=== PATIENT | male | born 1995 | race African-American/Black ===

== ENCOUNTER 2017-04-25 21:11 | Emergency (ER) | payer MEDICAID ==
[2017-04-25 21:23] VITALS: BP 143/75
--- NOTE | 2017-04-25 21:39 | ER Document Report ---
HPI - HPI Patient complains to provider of: URI Pain Level: 3 Context: Patient is a 26-year-old male who presents emergency department complaining of fever, body aches that started on Monday. He admits to nonproductive cough, body aches, headache. Admits to sick contacts at home. Denies any nausea, vomiting, abdominal pain, diarrhea, constipation. Denies any decreased urine output. Did take cough medicine prior to arrival. Non-smoker - CONSTITUTIONAL Constitutional: REPORTS: Fever, Chills - EENT EENT: DENIES: Sore Throat, Ear Pain, Eye problems - NEURO Neurology: REPORTS: Headache, Weakness. DENIES: Vision blurred, Dizzinesss / Vertigo - CARDIOVASCULAR Cardiovascular: REPORTS: Chest pain - RESPIRATORY Respiratory: REPORTS: Coughing. DENIES: Trouble Breathing - GASTROINTESTINAL Gastrointestinal: DENIES: Abdominal Pain, Black / Bloody Stools - URINARY Urinary: DENIES: Dysuria, Urgency, Frequency - MUSCULOSKELETAL Musculoskeletal: REPORTS: Extremity pain - Body aches Past Medical History - Social History Smoking Status: Unknown if Ever Smoked Family History: Hypertension, Other - Father-CHF Patient has suicidal ideation: No Patient has homicidal ideation: No Pulmonary Medical History: Reports: Hx Asthma Renal/ Medical History: Denies: Hx Peritoneal Dialysis Psychiatric Medical History: Reports: Hx Anxiety, Hx Bipolar Disorder Vertical Provider Document - CONSTITUTIONAL Agree With Documented VS: Yes Notes: PHYSICAL EXAM GENERAL: Alert, interacts well. HEAD: Normocephalic, atraumatic. EYES: Pupils equal, round, and reactive to light. Extraocular movements intact. ENT: Oral mucosa moist, tongue midline. NECK: Full range of motion. Supple. Trachea midline. LUNGS: Clear to auscultation bilaterally, no wheezes, rales, or rhonchi. No respiratory distress. HEART: Regular rate and rhythm. No murmurs, gallops, or rubs. ABDOMEN: Soft, nondistended, nontender. No guarding, rebound, or rigidity.. Bowel sounds present in all 4 quadrants. EXTREMITIES: Moves all 4 extremities spontaneously. No edema, radial and dorsalis pedis pulses 2/4 bilaterally. No cyanosis. NEUROLOGICAL: Alert and oriented x4. Normal speech. PSYCH: Normal affect, normal mood. SKIN: Warm, dry, normal turgor. No rashes or lesions noted. - INFECTION CONTROL TRAVEL OUTSIDE OF THE [place] IN LAST 30 DAYS: No - RESPIRATORY O2 Sat by Pulse Oximetry: 96 Course - Re-evaluation Re-evalutation: Presentation is most consistent with a viral upper respiratory infection. Initial tachycardia resolved after aggressive p.o. hydration and Motrin. Patient is overall well appearance, vitals within normal limits, well-hydrated. Patient denies any headache, neck pain, and has no evidence of meningismus on examination. Lungs are clear bilaterally. No evidence of respiratory distress. Based on clinical exam and history, I do not suspect an acute pneumonia, meningitis, strep pharyngitis, or an acute encephalitis. No laboratory or imaging testing is indicated at this time. Will discharge patient with return precautions and followup recommendations. They are in agreement this plan have verbalized understanding return precautions. - Vital Signs Vital signs: Temp Pulse Resp BP Pulse Ox 99.2 F 120 H 20 143/75 H 96 04/25/17 21:21 04/25/17 21:21 04/25/17 21:21 04/25/17 21:21 04/25/17 21:21 Discharge - Discharge Clinical Impression: URI (upper respiratory infection) Qualifiers: URI type: unspecified viral URI Qualified Code(s): J06.9 - Acute upper respiratory infection, unspecified Condition: Good Disposition: HOME, SELF-CARE Additional Instructions: Your symptoms are most likely due to a viral infection it should resolve over the next 7-14 days. You should take [id number] guanfacine per bottle instructions to help thin the mucus. For nasal congestion: I would recommend that you get [id number] oxymetazoline also known is afrin. Use only per bottle instructions and be sure to never use this for more than 3 days if you can develop severe rebound congestion. You may also use tylenol or ibuprofen as needed for aches and thorat discomfort. Please be sure to drink plenty of fluids and get rest. Return to the emergency department he began having difficulty breathing, chest pain, persistent vomiting, or any other symptoms that are concerning to you. Forms: Elevated Blood Pressure
[2017-04-25] MEDS ORDERED: IBUPROFEN 800 MG TABLET PO ONE (21:48)
== END 2017-04-25 23:15 | disposition home or self-care (01) ==
LOC: ER 21:11
DX: J06.9 Acute upper respiratory infection, unspecified (principal); R50.9 Fever, unspecified; M79.1 Myalgia; R51 Headache; R53.1 Weakness
CPT/HCPCS: 99283; J3490

== ENCOUNTER 2018-12-07 08:17 | Emergency (ER) | payer SELFPAY ==
--- NOTE | 2018-12-07 08:47 | ER Document Report ---
ED General - General Chief Complaint: Abdominal Pain Stated Complaint: STOAMCH PAIN AND LOWER BACK PAIN Time Seen by Provider: 12/07/18 08:47 TRAVEL OUTSIDE OF THE [place] IN LAST 30 DAYS: No - HPI Patient complains to provider of: abd pain Notes: 23 y/o presenting to ED for evaluation of epigastric burning sensation ongoing throughout the week no fever, chills, vomiting, diarrhea no blood in stool he states the pain is usually worse at night and he has had a sour taste in his mouth when he wakes up he has not tried any medications for this denies abdominal distention or h/o abdominal surgeries - Related Data Allergies/Adverse Reactions: No Known Allergies Allergy (Verified 12/07/18 08:24) Past Medical History - Social History Smoking Status: Unknown if Ever Smoked Chew tobacco use (# tins/day): No Frequency of alcohol use: None Drug Abuse: None Family History: Hypertension, Other - Father-CHF Patient has suicidal ideation: No Patient has homicidal ideation: No Pulmonary Medical History: Reports: Hx Asthma Renal/ Medical History: Denies: Hx Peritoneal Dialysis Psychiatric Medical History: Reports: Hx Anxiety, Hx Bipolar Disorder Review of Systems - Review of Systems Constitutional: No symptoms reported EENT: No symptoms reported Cardiovascular: No symptoms reported Respiratory: No symptoms reported Gastrointestinal: Abdominal pain. denies: Diarrhea, Vomiting, Black stools, Rectal bleeding Genitourinary: No symptoms reported Male Genitourinary: No symptoms reported Musculoskeletal: No symptoms reported Skin: No symptoms reported Hematologic/Lymphatic: No symptoms reported Neurological/Psychological: No symptoms reported Physical Exam - Vital signs Vitals: Temp Pulse Resp BP Pulse Ox 98.8 F 91 16 156/87 H 98 12/07/18 08:22 12/07/18 08:22 12/07/18 08:22 12/07/18 08:22 12/07/18 08:22 Interpretation: Normal - General General appearance: Appears well, Alert - HEENT Head: Normocephalic, Atraumatic Eyes: Normal Pupils: PERRL - Respiratory Respiratory status: No respiratory distress Chest status: Nontender Breath sounds: Normal Chest palpation: Normal - Cardiovascular Rhythm: Regular Heart sounds: Normal auscultation Murmur: No - Abdominal Inspection: Normal Distension: No distension Bowel sounds: Normal Tenderness: Tender - mild epigastric tenderness w/o rebound or guarding. No: Betancur's sign Organomegaly: No organomegaly - Back Back: Normal, Nontender - Extremities General upper extremity: Normal inspection, Nontender, Normal color, Normal ROM, Normal temperature General lower extremity: Normal inspection, Nontender, Normal color, Normal ROM, Normal temperature, Normal weight bearing. No: Shawn's sign - Neurological Neuro grossly intact: Yes Cognition: Normal Orientation: AAOx4 Emanuel Coma Scale Eye Opening: Spontaneous [place] Coma Scale Verbal: Oriented [place] Coma Scale Motor: Obeys Commands Emanuel Coma Scale Total: 15 Speech: Normal Motor strength normal: LUE, RUE, LLE, RLE Sensory: Normal - Psychological Associated symptoms: Normal affect, Normal mood - Skin Skin Temperature: Warm Skin Moisture: Dry Skin Color: Normal Course - Re-evaluation Re-evalutation: 12/07/18 10:49 will screen with labs and urine but exam and history are consistent w/ GERD GI cocktail provided for symptoms 12/07/18 11:24 labs unremarkable and feeling better after GI cocktail dc w/ zantac use at home - Vital Signs Vital signs: Temp Pulse Resp BP Pulse Ox 98.8 F 91 16 156/87 H 98 12/07/18 08:22 12/07/18 08:22 12/07/18 08:22 12/07/18 08:22 12/07/18 08:22 - Laboratory Result Diagrams: 12/07/18 09:50 12/07/18 09:50 Laboratory results interpreted by me: 12/07/18 12/07/18 09:50 09:50 RBC 5.77 H MCV 78 L MCH 26.0 L RDW 14.6 H Lymph % (Auto) 54.6 H Absolute Neuts (auto) 1.3 L Seg Neutrophils % 31.9 L Urine Urobilinogen 2.0 H Discharge - Discharge Clinical Impression: Elevated blood pressure reading GERD (gastroesophageal reflux disease) Qualifiers: Esophagitis presence: without esophagitis Qualified Code(s): K21.9 - Gastro- esophageal reflux disease without esophagitis Condition: Stable Disposition: HOME, SELF-CARE Instructions: Reflux Disease (GERD) ([facility]) Additional Instructions: follow up with primary doctor return to ED with worsening Prescriptions: Ranitidine HCl [Zantac] 150 mg PO BID #30 tablet Forms: Elevated Blood Pressure Referrals: SISSY HINDS MD [HONORARY] - Follow up as needed
[2018-12-07] MEDS ORDERED: METOCLOPRAMIDE HCL ORAL SOLN 10 MG/10 ML UDCUP PO ONE (08:53)
[2018-12-07] MEDS ORDERED: MAG HYDROX/AL HYDROX/SIMETH SUSP 30 ML UDCUP PO ONE (08:53)
[2018-12-07] MEDS ORDERED: LIDOCAINE 2% VISCOUS SOLN 20 ML UDCUP PO ONE (08:53)
[2018-12-07] MEDS ORDERED: LIDOCAINE 2% VISCOUS SOLN 20 ML UDCUP ONE (10:24)
[2018-12-07 10:47] LABS: APPEARANCE,URINE CLEAR; BILIRUBIN,URINE NEGATIVE (NEGATIVE); CALCIUM OXALATE CRYSTALS,URINE RARE /HPF; COLOR,URINE YELLOW; GLUCOSE, URINE NEGATIVE (NEGATIVE); KETONES,URINE NEGATIVE (NEGATIVE); LEUKOCYTE ESTERASE,URINE NEGATIVE (NEGATIVE); NITRITE,URINE NEGATIVE (NEGATIVE); PROTEIN,URINE NEGATIVE (NEGATIVE); URINE SPECIFIC GRAVITY 1.024
[2018-12-07 10:50] LABS: ABSOLUTE EOSINOPHILS # (AUTO) 0.1 10^3/uL (0.0-0.6); ABSOLUTE LYMPHOCYTES (AUTO) 2.2 10^3/uL (0.5-4.7); ABSOLUTE MONOCYTES (AUTO) 0.5 10^3/uL (0.1-1.4); ABSOLUTE NEUT (AUTO) 1.3 10^3/uL (1.7-8.2); BASOPHILS % (AUTO) 0.5 % (0-2); EOSINOPHILS % (AUTO) 1.9 % (0-6); HEMATOCRIT 45.2 % (37.9-51.0); LYMPHOCYTES % (AUTO) 54.6 % (13-45); MEAN CORPUSCULAR HGB CONC 33.2 g/dL (32.0-36.0); MEAN CORPUSCULAR VOLUME 78 fl (80-97); MONOCYTES % (AUTO) 11.1 % (3-13); PLATELET COUNT 198 10^3/uL (150-450); RED BLOOD COUNT 5.77 10^6/uL (4.35-5.55); RED CELL DISTRIBUTION WIDTH 14.6 % (11.5-14.0); SEGMENTED NEUTROPHILS % (AUTO) 31.9 % (42-78); TOTAL CELLS COUNTED % (AUTO) 100 %; WHITE BLOOD COUNT 4.1 10^3/uL (4.0-10.5)
[2018-12-07 11:17] LABS: ALKALINE PHOSPHATASE 78 U/L (38-126); ANION GAP 8 (5-19); ASPARTATE AMINO TRANSFERASE 24 U/L (17-59); BILIRUBIN,DIRECT 0.1 mg/dL (0.0-0.4); BILIRUBIN,TOTAL 0.7 mg/dL (0.2-1.3); BLOOD UREA NITROGEN 10 mg/dL (7-20); CALCIUM 9.3 mg/dL (8.4-10.2); CARBON DIOXIDE 26 mmol/L (22-30); CHLORIDE 106 mmol/L (98-107); GLUCOSE 98 mg/dL (75-110); TOTAL PROTEIN 6.8 g/dL (6.3-8.2)
[2018-12-07 11:27] VITALS: BP 137/81
== END 2018-12-07 11:40 | disposition home or self-care (01) ==
LOC: ER 08:17
DX: K21.9 Gastro-esophageal reflux disease without esophagitis (principal); R03.0 Elevated blood-pressure reading, without diagnosis of hypertension; R10.9 Unspecified abdominal pain; M54.5 Low back pain; J45.909 Unspecified asthma, uncomplicated
CPT/HCPCS: 36415; 83690; 85025; 80053; 81001; J3490; 99284

== ENCOUNTER 2019-03-18 03:42 | Emergency (ER) | payer SELFPAY ==
--- NOTE | 2019-03-18 04:59 | RADIOLOGY REPORT (SQ) ---
EXAM DESCRIPTION: X-RAY CHEST TWO VIEWS CLINICAL HISTORY: 24 years, Male, CHEST PAIN COMPARISON: None. FINDINGS: PA and lateral chest radiographs were performed at 0445 hours on 03/18/2019. The lungs are well expanded and clear. The costophrenic sulci are sharp. The cardiac silhouette, hilar regions, trachea, soft tissues and bony structures are unremarkable, aside from an old grade 1 anterior wedge compression deformity of T12. IMPRESSION: No acute cardiopulmonary disease.
[2019-03-18 05:12] LABS: ABSOLUTE EOSINOPHILS # (AUTO) 0.1 10^3/uL (0.0-0.6); ABSOLUTE LYMPHOCYTES (AUTO) 3.1 10^3/uL (0.5-4.7); ABSOLUTE MONOCYTES (AUTO) 0.4 10^3/uL (0.1-1.4); ABSOLUTE NEUT (AUTO) 2.1 10^3/uL (1.7-8.2); BASOPHILS % (AUTO) 0.3 % (0-2); EOSINOPHILS % (AUTO) 2.6 % (0-6); HEMOGLOBIN 14.7 g/dL (13.5-17.0); LYMPHOCYTES % (AUTO) 53.7 % (13-45); MEAN CORPUSCULAR HEMOGLOBIN 26.7 pg (27.0-33.4); MEAN CORPUSCULAR HGB CONC 34.2 g/dL (32.0-36.0); MEAN CORPUSCULAR VOLUME 78 fl (80-97); MONOCYTES % (AUTO) 6.7 % (3-13); PLATELET COUNT 194 10^3/uL (150-450); RED CELL DISTRIBUTION WIDTH 14.7 % (11.5-14.0); SEGMENTED NEUTROPHILS % (AUTO) 36.7 % (42-78); TOTAL CELLS COUNTED % (AUTO) 100 %; WHITE BLOOD COUNT 5.8 10^3/uL (4.0-10.5)
[2019-03-18 05:32] LABS: ALBUMIN 4.1 g/dL (3.5-5.0); ALKALINE PHOSPHATASE 107 U/L (38-126); ANION GAP 10 (5-19); ASPARTATE AMINO TRANSFERASE 32 U/L (17-59); BILIRUBIN,DIRECT 0.2 mg/dL (0.0-0.4); BILIRUBIN,TOTAL 0.6 mg/dL (0.2-1.3); BLOOD UREA NITROGEN 11 mg/dL (7-20); CALCIUM 9.2 mg/dL (8.4-10.2); CARBON DIOXIDE 26 mmol/L (22-30); CHLORIDE 102 mmol/L (98-107); CREATINE KINASE 550 U/L (55-170); GLUCOSE 95 mg/dL (75-110); TOTAL PROTEIN 7.2 g/dL (6.3-8.2)
[2019-03-18 05:43] LABS: CREATINE KINASE MB 5.18 ng/mL (<4.55)
[2019-03-18 05:47] LABS: TROPONIN I < 0.012 ng/mL
--- NOTE | 2019-03-18 06:37 | ER Document Report ---
ED General - General Chief Complaint: Chest Pain Stated Complaint: CHEST TIGHTNESS Time Seen by Provider: 03/18/19 06:00 Primary Care Provider: HEALTH,EMPLOYEE [ACTIVE STAFF] - Follow up as needed TRAVEL OUTSIDE OF THE [place] IN LAST 30 DAYS: No - HPI Notes: Patient is a 24-year-old male who presents to the emergency department for evaluation of chest pain. When I asked the patient how long it is been present, he states "truthfully, 6 years." He describes a left-sided chest pressure and tightness. He states it sometimes is with him all day. He denies any aggravating or relieving factors. No associated symptoms. He rates it at a 2 out of 5 currently. He states that it is been constant since 1800 yesterday evening. Again, this is not a new pain, he states he has had daily for 6 years. - Related Data Allergies/Adverse Reactions: No Known Allergies Allergy (Verified 12/07/18 08:24) Home Medications: None Past Medical History - General Information source: Patient - Social History Smoking Status: Never Smoker Frequency of alcohol use: Rare Family History: Hypertension, Other - Father-"heart problems" for which he in his 50s Patient has suicidal ideation: No Patient has homicidal ideation: No Pulmonary Medical History: Reports: Hx Asthma Renal/ Medical History: Denies: Hx Peritoneal Dialysis Psychiatric Medical History: Reports: Hx Anxiety, Hx Bipolar Disorder Surgical Hx: Negative Review of Systems - Review of Systems Constitutional: No symptoms reported EENT: No symptoms reported Cardiovascular: See HPI Respiratory: No symptoms reported Genitourinary: No symptoms reported Musculoskeletal: No symptoms reported Skin: No symptoms reported Neurological/Psychological: No symptoms reported Physical Exam - Vital signs Vitals: Temp Pulse Resp BP Pulse Ox 98.5 F 78 20 157/100 H 99 03/18/19 04:07 03/18/19 04:07 03/18/19 04:07 03/18/19 04:07 03/18/19 04:07 - Notes Notes: Vital signs reviewed, please refer to chart. Head is normocephalic, atraumatic. Pupils equal round, reactive to light. Neck is supple without meningismus. Heart is regular rate and rhythm. Lungs are clear to auscultation bilaterally. Abdomen is soft, nontender, normoactive bowel sounds throughout. Extremities w ithout cyanosis, clubbing. Posterior calves are nontender. Peripheral pulses are equal. Skin is warm and dry. Patient is awake, alert, neurological exam is nonfocal. Course - Re-evaluation Re-evalutation: 03/18/19 06:38 Patient presents emergency department for evaluation. He complains of left- sided chest pressure that is been present for 6 years intermittently. He had laboratory investigations, EKG, imaging is ordered based on protocols. Laboratory investigations were entirely unremarkable, including undetectable troponin levels. His chest x-ray is unremarkable. His EKG shows early repolarization, largely unchanged from prior study performed several years ago. This patient's pain does not seem anginal in any way. His only risk factor is obesity, as well as unknown but sudden cardiac history in father. I strongly encouraged him to follow-up with a primary care provider and address all of his risk factors to the best of his ability. Given the duration of his pain and the atypical nature of his symptoms, I am not overly concerned that this is an emergent process. He needs to follow-up, return to the ED with worsening. Thought process and laboratory vesication findings were discussed in detail with the patient and he voiced understanding. He is amenable to this plan and was discharged. - Vital Signs Vital signs: Temp Pulse Resp BP Pulse Ox 98.5 F 78 22 H 157/100 H 98 03/18/19 04:07 03/18/19 04:07 03/18/19 06:05 03/18/19 04:07 03/18/19 06:09 - Laboratory Result Diagrams: 03/18/19 04:45 03/18/19 04:45 Laboratory results interpreted by me: 03/18/19 03/18/19 03/18/19 04:30 04:45 04:45 MCV 78 L MCH 26.7 L RDW 14.7 H Lymph % (Auto) 53.7 H Seg Neutrophils % 36.7 L Creatine Kinase 550 H CK-MB (CK-2) 5.18 H - Diagnostic Test Radiology reviewed: Reports reviewed Radiology results interpreted by me: 03/18/19 06:39 Chest X-Ray 03/18/19 00:00 IMPRESSION: No acute cardiopulmonary disease. - EKG Interpretation by Me Additional EKG results interpreted by me: 03/18/19 06:39 Sinus mechanism with a rate of 75 bpm. Normal axis and intervals. ST changes with upsloping segment, consistent with early repolarization changes. When compared to prior study of October 10, 2012 there is no significant change. Discharge - Discharge Clinical Impression: Chest pain Condition: Stable Disposition: HOME, SELF-CARE Instructions: Chest Pain of Unclear Cause ([facility]) Additional Instructions: No clear, emergent cause is found for your chest pain today. Please follow-up with primary care. Be sure all of your risk factors are being addressed appropriately. If you develop worsening pain, or new or concerning symptoms of any sort, please return immediately to the emergency department for evaluation. Referrals: HEALTH,EMPLOYEE [ACTIVE STAFF] - Follow up as needed
[2019-03-18 06:57] VITALS: BP 129/75
--- NOTE | 2019-03-18 08:04 | EKG REPORT ---
SEVERITY:- NORMAL ECG - SINUS RHYTHM ST ELEV, PROBABLE NORMAL EARLY REPOL PATTERN : Confirmed by: Harley Cruz 18-Mar-2019 08:03:46
== END 2019-03-18 07:01 | disposition home or self-care (01) ==
LOC: ER 03:42
DX: R07.9 Chest pain, unspecified (principal); J45.909 Unspecified asthma, uncomplicated
CPT/HCPCS: 36415; 71046; 80053; 82550; 82553; 84484; 85025; 93005; 93010; 99285